=== PATIENT | female | born 1950 | race Two or more races ===

== ENCOUNTER → 2017-03-11 | Outpatient (CLI) | payer MEDICARE, OTHER ==
[~2017-03-11] MED LIST: 3N1 COMMODE MC; AMLO-147 PO; ASPI325T32 PO; ATOR10TA65 PO; BENA20TA48 PO; CALC500T12 PO; CPM MC; EST42.5C VAG; OXYC-481 PO; TRAM50TA2 PO; WALK1EAC23 MC
--- NOTE | 2017-03-11 12:15 | RADRPT ---
PROCEDURE: Right knee radiographs. CLINICAL INDICATION: Right knee pain. Postop. TECHNIQUE: Three views. Weight bearing. Frontal, lateral, and patellar view. COMPARISON: 09/10/2016. FINDINGS: There is no fracture or dislocation. There is a small joint effusion. The soft tissues are otherwise normal. There is a total right knee arthroplasty which appears satisfactory. There is no lytic or blastic lesion. IMPRESSION: 1. Small joint effusion. 2. Otherwise satisfactory postoperative appearance of the right knee. RPTAT: QQ .Humberto Shanks MD, MD Date Time Electronically viewed and signed by .Humberto Shanks MD, on 03/11/2017 12:15 .R/
== END | disposition home or self-care (01) ==
LOC: HKI 09:28
PROVIDERS: ATTEND Orthopaedic Surgery
DX: Z47.89 Encounter for other orthopedic aftercare (principal); Z96.651 Presence of right artificial knee joint; I10 Essential (primary) hypertension
CPT/HCPCS: 73562; G0463